=== PATIENT | male | born 2000 ===

== ENCOUNTER 2019-09-10 21:42 | Emergency (ER) | payer OTHER ==
[~2019-09-10] VITALS: Ht 180.3 cm; Wt 113.4 kg
[2019-09-11] MEDS ORDERED: ALBUTEROL2.5 MG/3 M IH (01:51)
[2019-09-11] MEDS ORDERED: SYMBICORT 16010.2 GM IH (01:51)
[2019-09-11] MEDS ORDERED: ZYNCOF 20-400120 ML PO (01:51)
[2019-09-11] MEDS ORDERED: ZITHROMAX500 MG PO (01:51)
== END 2019-09-11 02:01 ==
LOC: ER 21:42
DX: J06.9 Acute upper respiratory infection, unspecified (principal)